=== PATIENT | female | born 1930 | race Caucasian/White ===

== ENCOUNTER 2017-05-05 16:16 | Observation (INO) ==
[2017-05-05] MEDS ORDERED: Ipratropium/Albuterol Neb 3 ML IH ONE (16:28)
[2017-05-05] MEDS ORDERED: methylPREDNISolone 125 MG/2 ML VIAL IVP ONE (16:29)
[2017-05-05] MEDS ORDERED: 0.9 % Sodium Chloride 2,000 ML ONE (16:42)
[2017-05-05] MEDS: 0.9 % Sodium Chloride 1,000 ML IVC SCH ×2 (16:44→17:44)
[2017-05-05 16:48] LABS: Basophils # 0.1 K/mcL (0.0-0.2); Basophils % 0.3 %; Hematocrit 33.7 % (35.3-44.9); Hemoglobin 10.2 g/dL (11.5-15.4); Immature Granulocytes % 2.7 % (0-4); Lymphocytes # 0.5 K/mcL (0.6-4.6); Lymphocytes % 2.7 %; Mean Corpuscular HGB Conc 30.3 g/dL (31.6-35.5); Mean Corpuscular Hemoglobin 27.7 pg (28.0-33.3); Mean Corpuscular Volume 91.6 fL (83.0-100.0); Mean Platelet Volume 10.6 fL (9.4-12.4); Monocytes # 0.2 K/mcL (0.0-1.3); Monocytes % 1.4 %; Neutrophils # 15.4 K/mcL (1.6-8.9); Platelet Count 247 K/mcL (140-400); Red Blood Count 3.68 M/mcL (3.82-4.97); Red Cell Distribution Width 16.7 % (11.5-14.5); Segmented Neutrophils % 92.9 %
[2017-05-05 16:54] LABS: INR 1.2; Prothrombin Time 12.8 Seconds (9.4-12.1)
[2017-05-05 16:57] LABS: Activated Partial Thrombo Time 26.4 Seconds (26.0-36.0)
[2017-05-05] MEDS ORDERED: Levofloxacin 750 MG/150 ML 750 MG/150 ML BAG IVPB ONE (16:58)
--- NOTE | 2017-05-05 17:03 | Emergency Department Note ---
Disposition Clinical Impression: Acute on chronic respiratory failure with hypoxia and hypercapnia Hypotension Qualifiers: Hypotension type: unspecified hypotension type Qualified Code(s): I95.9 - Hypotension, unspecified Disposition: Admitted As Inpatient Condition: Fair Forms: ED Satisfaction Letter, Work/School Release Time of Disposition: 19:27 General Adult HPI - General Chief complaint: ED General Medical Stated complaint: "LOW BP" Time Seen by Provider: 05/05/17 16:26 Source: patient Mode of arrival: wheelchair Limitations: no limitations Nursing Notes Reviewed: Yes Vital Signs Reviewed: Yes - History of Present Illness HPI Narrative: 86-year-old female presented to the emergency department complaining of hypoxia. Patient states her sats were in the low 80s. She is always on 2 L of oxygen at home. She did have a BiPAP machine at home but did not like the way made her feel so she quit using it. Patient was have history of COPD she has had been intubated one specific that this will never happen again she is now a DNR DNI. They said earlier this week patient had a lobe blood pressures they checked her labs and she was down 2 units of blood to be transfused her with 2 units into [place] all of her blood pressure medications. She been doing fine all week. Until they noticed her oxygen saturations were down today. Patient otherwise is having no complaints including no fevers, chills, nausea, vomiting , back pain, neck pain, headaches, blurry vision, chest pain, abdominal pain, changes in bowel movements, pain with urination, pain or tingling going down the arms or legs or any generalized weakness. Pain Scale: 0 - Related Data Home Medications Medication Instructions Recorded Confirmed Aspirin 81 mg PO DAILY 11/13/14 05/05/17 Levalbuterol Neb [Xopenex] 0.63 mg IH TID 11/13/14 05/05/17 Ferrous Sulfate [Iron] 325 mg PO BID 12/12/16 05/05/17 Albuterol Sulfate 2.5 mg IH Q4HR PRN 04/03/17 05/05/17 HYDROcodone/Acet 7.5/325 mg [[place] 1 tab PO Q6HR PRN 04/03/17 05/05/17 7.5-325 mg] Atorvastatin [Lipitor] 40 mg PO HS 05/05/17 05/05/17 Levothyroxine Sodium [Synthroid] 200 mcg PO QAM 05/05/17 05/05/17 predniSONE [PredniSONE] See Taper PO DAILY 05/05/17 05/05/17 Previous Rx's Medication Instructions Recorded Budesonide/Formoterol 160/4.5 2 puff IH BIDRESP #1 inhaler 09/16/15 [Symbicort 160/4.5] Clopidogrel [Plavix] 75 mg PO DAILY #30 tablet 09/16/15 Allergies Allergy/AdvReac Type Severity Reaction Status Date / Time No Known Allergies Allergy Verified 05/05/17 16:38 Review of Systems: 10 point review of systems done and negative unless otherwise stated in history of present illness. All systems ED: reviewed and negative except as stated. Review of Systems: As Per HPI Past Medical History - Past Medical History Attestation: Yes The following information was validated with the patient. Medical history: Reports: arthritis, CHF, COPD, coronary artery disease, CVA, hypertension, thyroid disease, TIA, other Surgical history: Reports: appendectomy, hysterectomy, other Psychiatric history: Reports: no psych history, anxiety [employer] history: Reports: other - Social History Smoking Status: Former smoker Smokeless Tobacco Status: No Alcohol use: Reports: none Drug use: Reports: none Physical Exam - General Limitations: no limitations General appearance: alert, in no apparent distress - Head Head exam: atraumatic, normocephalic, normal inspection - Eye Eye exam: Present: normal appearance, PERRL, EOMI - ENT ENT exam: normal exam, normal oropharynx, mucous membranes moist - Neck Neck exam: Present: normal inspection, full ROM, trachea midline - Chest Chest inspection: Present: normal inspection, symmetric chest wall rise - Respiratory Respiratory exam: Present: normal lung sounds bilaterally, wheezes (Bilaterally. ). Absent: respiratory distress, accessory muscle use - Cardiovascular Cardiovascular exam: Present: regular rate, normal rhythm, normal heart sounds - Abdominal Exam Abdominal exam: Present: soft, Non-Tender. Absent: tenderness, distention, guarding, rebound, rigidity - Extremities Exam Extremities exam: Present: normal inspection, full ROM. Absent: tenderness, pedal edema - Expanded Lower Extremity Exam Neurovascular/Tendon exam: Present: normal capillary refill. Absent: pulse deficit, motor deficit, sensory deficit - Back Exam Back exam: Present: normal inspection, full ROM. Absent: tenderness - Neurological Exam Neurological exam: Present: alert, oriented X3 - Skin Skin exam: Present: warm, dry, intact, normal color Course Course Narrative: 86-year-old female presents to the emergency department complaining of low blood pressure and shortness of breath. Patient was also tachycardic she is on clopidogrel. She has bruising all over her arms. We will get CBC, CMP, urinalysis, chest x-ray, urinalysis as well as coags and EKG. We will give patient 1 L of IV fluids this does not meet the sepsis criteria of 30 mg/kg but due to patient's chronic comorbidities and decreased lung function and heart function we will only give 1000 mL. Disposition is pending results. Vital Signs Temperature 98.0 F 05/05/17 16:30 Pulse Rate 91 05/05/17 16:30 Respiratory Rate 22 05/05/17 16:30 Blood Pressure 74/65 05/05/17 16:30 O2 Sat by Pulse Oximetry 90 05/05/17 16:30 Temperature 98.0 F 05/05/17 16:30 Pulse Rate 80 05/05/17 17:06 Respiratory Rate 22 05/05/17 17:15 Blood Pressure 145/50 05/05/17 17:06 O2 Sat by Pulse Oximetry 100 05/05/17 17:15 Oxygen Delivery Oxygen Delivery Nasal Cannula Medical Decision Making - [facility] Narrative Medical decision making narrative: 86-year-old female presented to the emergency department with hypotension. Patient does take clopidogrel. She had received 2 units of blood a few days ago due to hypotension as well as low hemoglobin. Today her hemoglobin is normal eyes. Although she does have a white count of 16,000. Patient does have cellulitis that we saw on examination of her right groin as well as a healing that ulcer of her right buttocks. This does seem to be healing well these all seem to be yeast in etiology. Patient was hypotensive and tachycardic. She did not have hypoxia as well at 85% while on 4 L which she normally is always on oxygen. Patient did have hyper carboxy. Patient does not tolerate BiPAP through not do it she is DNR DNI. We did give patient vancomycin and Levaquin for her suspected infection when she came in also gave her IV fluids 1 L. Patient tolerated this well. We did do a type and cross in case patient needed blood but we ended up giving the blood. We did get a chest x-ray which had no acute changes. Due to patient not feeling well and being hypoxic we felt that admission was warranted. I spoke with Dr. Barnes who agreed to accept the patient to the hospitalist service. Patient was accepted and admitted in stable condition. Family was notified and they agree with this plan. Chest X-Ray 05/05/17 16:27 IMPRESSION: No acute findings. D/ / Natasha العلي MD / Natasha العلي MD Interpreting Provider: Natasha العلي MD - Medical Records Medical records reviewed: Yes I reviewed the patient's medical records. - Lab Data Lab results reviewed: Yes I reviewed the patient's lab results. Result diagrams: 05/05/17 16:36 05/05/17 16:36 Lab Results 05/05/17 05/05/17 05/05/17 Range/Units 16:36 16:36 16:36 WBC 16.6 H D (4.3-11.1) K/mcL RBC 3.68 L (3.82-4.97) M/mcL Hgb 10.2 L (11.5-15.4) g/dL Hct 33.7 L (35.3-44.9) % MCV 91.6 (83.0-100.0) fL MCH 27.7 L (28.0-33.3) pg MCHC 30.3 L (31.6-35.5) g/dL RDW 16.7 H (11.5-14.5) % Plt Count 247 D (140-400) K/mcL MPV 10.6 (9.4-12.4) fL Immature Gran % 2.7 (0-4) % Seg Neutrophils % 92.9 % Lymphocytes % 2.7 % Monocytes % 1.4 % Eosinophils % 0.0 % Basophils % 0.3 % Neutrophils # 15.4 H (1.6-8.9) K/mcL Lymphocytes # 0.5 L (0.6-4.6) K/mcL Monocytes # 0.2 (0.0-1.3) K/mcL Eosinophils # 0.0 (0.0-0.6) K/mcL Basophils # 0.1 (0.0-0.2) K/mcL PT 12.8 H (9.4-12.1) Seconds INR 1.2 APTT 26.4 (26.0-36.0) Seconds Sample Site ABG pH (7.32-7.45) pH Units ABG pCO2 (35-45) mmHg ABG pO2 (85-104) mmHg ABG HCO3 (21-27) mEq/L ABG Total CO2 (20-26) mEq/L ABG O2 Saturation (95-98) % ABG Base Excess (-2 to 3) mEq/L Riley Test O2 Delivery Device Inspired O2 (1-15=lpm hi58-137=%) Sodium 143 (136-145) mEq/L Potassium 3.4 L (3.5-5.1) mEq/L Chloride 95 L (98-107) mEq/L Carbon Dioxide 41 H* (23-29) mEq/L BUN 33 H (8-23) mg/dL Creatinine 1.28 H (0.60-1.20) mg/dL Est GFR ( Amer) 48 L (> 60) Est GFR (Non-Af Amer) 40 L (> 60) BUN/Creatinine Ratio 26 (6-26) Glucose 149 H (70-105) mg/dL Calculated Osmolality 306 H (280-300) Lactic Acid (0.5-2.2) mmol/L Calcium 8.5 L (8.6-10.3) mg/dL Phosphorus 3.0 (2.7-4.5) mg/dL Magnesium 1.8 (1.6-2.6) mg/dL Total Bilirubin 0.5 (0.3-1.0) mg/dL Direct Bilirubin 0.1 (0.0-0.2) mg/dL Indirect Bilirubin 0.4 (0.0-1.2) mg/dL AST 16 (13-39) Units/L ALT 21 (7-52) Units/L Alkaline Phosphatase 67 (34-104) Units/L Troponin I (< 0.04) ng/mL Serum Total Protein 6.0 L (6.4-8.9) g/dL Albumin 3.8 (3.5-5.7) g/dL Globulin 2.2 L (2.4-3.5) g/dL Albumin/Globulin Ratio 1.7 (1.1-2.2) Lipase 17 (11-82) Units/L Urine Color (Yellow) Urine Clarity (Clear) Urine pH (5.0-8.0) pH Units Ur Specific [place] (1.010-1.025) Urine Protein (Neg-Trace) mg/dL Urine Glucose (UA) (Normal) mg/dL Urine Ketones (Negative) mg/dL Urine Blood (Negative) Urine Nitrite (Negative) Urine Bilirubin (Negative) Urine Urobilinogen (Normal) mg/dL Ur Leukocyte Esterase (Negative) Ur Culture Indicated? (NO) Stool Occult Blood (Negative) Blood Type Antibody Screen Crossmatch 05/05/17 05/05/17 05/05/17 Range/Units 16:36 16:36 16:36 WBC (4.3-11.1) K/mcL RBC (3.82-4.97) M/mcL Hgb (11.5-15.4) g/dL Hct (35.3-44.9) % MCV (83.0-100.0) fL MCH (28.0-33.3) pg MCHC (31.6-35.5) g/dL RDW (11.5-14.5) % Plt Count (140-400) K/mcL MPV (9.4-12.4) fL Immature Gran % (0-4) % Seg Neutrophils % % Lymphocytes % % Monocytes % % Eosinophils % % Basophils % % Neutrophils # (1.6-8.9) K/mcL Lymphocytes # (0.6-4.6) K/mcL Monocytes # (0.0-1.3) K/mcL Eosinophils # (0.0-0.6) K/mcL Basophils # (0.0-0.2) K/mcL PT (9.4-12.1) Seconds INR APTT (26.0-36.0) Seconds Sample Site ABG pH (7.32-7.45) pH Units ABG pCO2 (35-45) mmHg ABG pO2 (85-104) mmHg ABG HCO3 (21-27) mEq/L ABG Total CO2 (20-26) mEq/L ABG O2 Saturation (95-98) % ABG Base Excess (-2 to 3) mEq/L Riley Test O2 Delivery Device Inspired O2 (1-15=lpm qw60-104=%) Sodium (136-145) mEq/L Potassium (3.5-5.1) mEq/L Chloride (98-107) mEq/L Carbon Dioxide (23-29) mEq/L BUN (8-23) mg/dL Creatinine (0.60-1.20) mg/dL Est GFR ( Amer) (> 60) Est GFR (Non-Af Amer) (> 60) BUN/Creatinine Ratio (6-26) Glucose (70-105) mg/dL Calculated Osmolality (280-300) Lactic Acid 1.1 (0.5-2.2) mmol/L Calcium (8.6-10.3) mg/dL Phosphorus (2.7-4.5) mg/dL Magnesium (1.6-2.6) mg/dL Total Bilirubin (0.3-1.0) mg/dL Direct Bilirubin (0.0-0.2) mg/dL Indirect Bilirubin (0.0-1.2) mg/dL AST (13-39) Units/L ALT (7-52) Units/L Alkaline Phosphatase (34-104) Units/L Troponin I < 0.03 (< 0.04) ng/mL Serum Total Protein (6.4-8.9) g/dL Albumin (3.5-5.7) g/dL Globulin (2.4-3.5) g/dL Albumin/Globulin Ratio (1.1-2.2) Lipase (11-82) Units/L Urine Color (Yellow) Urine Clarity (Clear) Urine pH (5.0-8.0) pH Units Ur Specific [place] (1.010-1.025) Urine Protein (Neg-Trace) mg/dL Urine Glucose (UA) (Normal) mg/dL Urine Ketones (Negative) mg/dL Urine Blood (Negative) Urine Nitrite (Negative) Urine Bilirubin (Negative) Urine Urobilinogen (Normal) mg/dL Ur Leukocyte Esterase (Negative) Ur Culture Indicated? (NO) Stool Occult Blood (Negative) Blood Type A POSITIVE Antibody Screen NEGATIVE Crossmatch See Detail 05/05/17 05/05/17 05/05/17 Range/Units 17:11 17:30 17:56 WBC (4.3-11.1) K/mcL RBC (3.82-4.97) M/mcL Hgb (11.5-15.4) g/dL Hct (35.3-44.9) % MCV (83.0-100.0) fL MCH (28.0-33.3) pg MCHC (31.6-35.5) g/dL RDW (11.5-14.5) % Plt Count (140-400) K/mcL MPV (9.4-12.4) fL Immature Gran % (0-4) % Seg Neutrophils % % Lymphocytes % % Monocytes % % Eosinophils % % Basophils % % Neutrophils # (1.6-8.9) K/mcL Lymphocytes # (0.6-4.6) K/mcL Monocytes # (0.0-1.3) K/mcL Eosinophils # (0.0-0.6) K/mcL Basophils # (0.0-0.2) K/mcL PT (9.4-12.1) Seconds INR APTT (26.0-36.0) Seconds Sample Site L Radial ABG pH 7.39 (7.32-7.45) pH Units ABG pCO2 69 H (35-45) mmHg ABG pO2 198 H (85-104) mmHg ABG HCO3 42 H (21-27) mEq/L ABG Total CO2 44 H (20-26) mEq/L ABG O2 Saturation 100 H (95-98) % ABG Base Excess 15 H (-2 to 3) mEq/L Riley Test N/A O2 Delivery Device Cannula Inspired O2 4.0 (1-15=lpm uy68-490=%) Sodium (136-145) mEq/L Potassium (3.5-5.1) mEq/L Chloride (98-107) mEq/L Carbon Dioxide (23-29) mEq/L BUN (8-23) mg/dL Creatinine (0.60-1.20) mg/dL Est GFR ( Amer) (> 60) Est GFR (Non-Af Amer) (> 60) BUN/Creatinine Ratio (6-26) Glucose (70-105) mg/dL Calculated Osmolality (280-300) Lactic Acid (0.5-2.2) mmol/L Calcium (8.6-10.3) mg/dL Phosphorus (2.7-4.5) mg/dL Magnesium (1.6-2.6) mg/dL Total Bilirubin (0.3-1.0) mg/dL Direct Bilirubin (0.0-0.2) mg/dL Indirect Bilirubin (0.0-1.2) mg/dL AST (13-39) Units/L ALT (7-52) Units/L Alkaline Phosphatase (34-104) Units/L Troponin I (< 0.04) ng/mL Serum Total Protein (6.4-8.9) g/dL Albumin (3.5-5.7) g/dL Globulin (2.4-3.5) g/dL Albumin/Globulin Ratio (1.1-2.2) Lipase (11-82) Units/L Urine Color Yellow (Yellow) Urine Clarity Clear (Clear) Urine pH 6.0 (5.0-8.0) pH Units Ur Specific [place] 1.019 (1.010-1.025) Urine Protein Negative (Neg-Trace) mg/dL Urine Glucose (UA) Normal (Normal) mg/dL Urine Ketones Negative (Negative) mg/dL Urine Blood Negative (Negative) Urine Nitrite Negative (Negative) Urine Bilirubin Negative (Negative) Urine Urobilinogen Normal (Normal) mg/dL Ur Leukocyte Esterase Negative (Negative) Ur Culture Indicated? NO (NO) Stool Occult Blood Negative (Negative) Blood Type Antibody Screen Crossmatch - Radiology Data Radiology results reviewed: Yes I reviewed the patient's radiology results. - EKG Data EKG #1 EKG attestation: Yes I reviewed and interpreted this EKG. EKG results narrative: EKG done at 1653 review myself and attending shows sinus rhythm at a rate of 74 , [place] 147, QRS 83, QTc 413 there is no acute ST changes no acute T-wave changes no other signs of ischemia. There is no signs of hypertrophy or heart strain no signs of heart block, no signs of WPW/Brugada syndrome. There was no old EKG to compare with.
[2017-05-05 17:15] LABS: ABG Base Excess 15 mEq/L (-2 to 3); ABG HCO3 42 mEq/L (21-27); ABG Oxygen Saturation 100 % (95-98); ABG PCO2 69 mmHg (35-45); ABG PH 7.39 pH Units (7.32-7.45); ABG PO2 198 mmHg (85-104); ABG TCO2 44 mEq/L (20-26)
[2017-05-05 17:15] LABS: Albumin 3.8 g/dL (3.5-5.7); Albumin/Globulin Ratio 1.7 (1.1-2.2); Bilirubin,Direct 0.1 mg/dL (0.0-0.2); Bilirubin,Indirect 0.4 mg/dL (0.0-1.2); Bilirubin,Total 0.5 mg/dL (0.3-1.0); Calcium 8.5 mg/dL (8.6-10.3); Globulin 2.2 g/dL (2.4-3.5); Magnesium 1.8 mg/dL (1.6-2.6); Potassium 3.4 mEq/L (3.5-5.1)
[2017-05-05] MEDS ORDERED: Vancomycin 1,000 MG in D5% in Water 250 ML IVPB ONE (17:30)
[2017-05-05 18:21] LABS: Bilirubin,Urine Negative (Negative); Blood,Urine Negative (Negative); Clarity,Urine Clear (Clear); Color,Urine Yellow (Yellow); Glucose,Urine (UA) Normal (Normal); Ketones,Urine Negative (Negative); Leukocyte Esterase,Urine Negative (Negative); Nitrite,Urine Negative (Negative); Protein,Urine Negative (Neg-Trace); Specific Gravity,Urine 1.019 (1.010-1.025); Urobilinogen,Urine Normal (Normal)
[2017-05-05] MEDS ORDERED: *HR* HYDROcodone/Acet 7.5/325 mg TABLET PO ONE (18:29)
[2017-05-05] MEDS: Nystatin POWDER 30 GM BOTTLE TP SCH ×2 (18:47→23:24)
[2017-05-05] MEDS ORDERED: Naloxone 0.4 MG/ML INJ IVP PRN (19:41)
[2017-05-05] MEDS ORDERED: Acetaminophen 325 MG TABLET PO PRN (19:41)
--- NOTE | 2017-05-05 19:52 | Internal Med History&Physical ---
<Barbi Moore - Last Filed: 05/05/17 20:45> Date of Encounter: 05/05/17 Time of Encounter: 19:51 Assessment and Plan (1) Acute exacerbation of chronic obstructive airways disease Current visit: Yes Status: Acute 1 patient was experiencing increasing shortness of breath and hypoxia with sats in the 80s. She was recently admitted 5 days ago to [facility] and was discharged home on steroid taper as well as Levaquin 5 days she completed her final dose today. We will continue with oxygen titrated to maintain SPO2 greater than 90% 2 we will continue with bronchodilators 3 40 mg of Solu-Medrol IV every 8 hours 4 we will obtain respiratory panel (2) Cellulitis Current visit: Yes Status: Acute 1 Right groin red and indurated, we will cover continue with Vancomycin for now per renal dosing dt MAHSA, as well as nystatin there appears to fungal aspect. She does have an elevated white count however she has been on steroids. we will continue to trend 2 keep area clean and dry - patient has been incontinent of urine- porter has been placed Qualifiers: Site of cellulitis: unspecified site Qualified Code(s): L03.90 - Cellulitis , unspecified (3) MAHSA (acute kidney injury) Current visit: Yes Status: Acute Creatinine was 1.28 today which is up from previous 1.03, we will hold lasix and hypertensive medications for now patient was given IV fluids in the ER Continue to monitor creatinine Monitor intake and output and daily weight Avoid nephrotoxins (4) Anemia Current visit: No Status: Chronic 1 patient was recently admitted to [facility] for anemia at that time he was 7.9 she was given 2 units of blood presently she is 10.2sizes symptoms of active bleeding at this time however she was hypotensive 1 during ER visit today she was given IV fluids and blood pressure improved. According to patient she did have a EGD and colonoscopy approximately [address] Nolasco, no active bleeding noted she did have some polyps 2 we will continue to monitor CBC and transfuse as needed Qualifiers: Anemia type: unspecified type Qualified Code(s): D64.9 - Anemia, unspecified (5) Diastolic CHF Current visit: No Status: Chronic 1 patient has a history of CHF echo dated 09/10/2015 shows EF of 6570% normal LV chamber size wall thickness and function. Moderate left ventricular diastolic dysfunction. Normal right ventricular structure and function. Unable to estimate R VSP due to lack of TR jet. No obvious significant valvular dysfunctions. We will hold lasix for now dt MAHSA and hypotension Monitor intake output daily weights Low-sodium diet Qualifiers: Congestive heart failure chronicity: chronic Qualified Code(s): I50.32 - Chronic diastolic (congestive) heart failure (6) Hypertension, essential Current visit: No Status: Chronic Presently she is stable she did have some hyportension and her antihypertensive medications have been held and we will continue to hold medications for now We will have hydralazine when necessary in case systolic blood pressure is greater than 180 (7) Hypothyroidism Current visit: No Status: Chronic Continue with Synthroid Qualifiers: Hypothyroidism type: acquired Qualified Code(s): E03.9 - Hypothyroidism, unspecified (8) Metabolic alkalosis Current visit: Yes Status: Acute Presently patient's bicarb is 42 which appears to be chronic - compensating for resp acidosis - patient has hx of COPD- Holding lasix for now dt hypotension (9) DVT prophylaxis Current visit: No Status: [facility] - H&P: HPI Chief complaint: SOB Admitted From: Emergency Dept Plans for Post Hospital Care: Home History of present illness: Ms. Castelan is a 86 year old female past medical history of CHF COPD oxygen dependent CAD CVA hypertension thyroid disease TIA anemia. Patient was recently admitted to [facility] on 04/28/2017- At that time she was experiencing COPD exacerbation hypotension and anemia. During admission she was given 2 unit of blood, anti hypertensive medication were stopped and she was discharged04/30/2017 on a steroid taper and Levaquin. Patient states she was doing well until this morning when she began to experience shortness of breath she checked her oxygen saturation and found that she was in the low 80s. Despite the use of oxygen. She denies any fevers chills nausea vomiting chest pain or abdominal pain. She denies any urinary symptoms. She was brought to the ER for evaluation. Upon arrival patient's oxygen saturation was 89%on 4 L nasal cannula as well as her systolic blood pressure was 74 she was given bronchodilators as well as Solu-Medrol and her respiratory status improved. She was given IV fluids, blood pressure did improve. Lab work did reveal elevated white count and MAHSA. Chest x-ray clear. Patient does have a rash in her right groin which appears to be yeast, blood cultures were drawn in the ER the patient was given vancomycin as well as Levaquin. He is hemodynamically stable at this time, I did discuss CODE STATUS with patient she requests to be a DNR CCA DNI. She has been admitted for further workup and evaluation. I did review his case with Dr Glover Past Med Surg Social Fam HX - Past Medical History Medical history: arthritis, CHF, COPD, coronary artery disease, CVA, hypertension, thyroid disease, TIA, other Psychiatric history: no psych history, anxiety - Past Surgical History Surgical History: appendectomy, hysterectomy, other - Social History Smoking Status: Former smoker Smokeless Tobacco Status: No Alcohol use: none Drug use: none - Family History Mother Living Status: Hx Family Cancer: Yes Father Living Status: Hx Family Cardiac Disorders: Yes (htn,cad) Hx Family Endocrine Disorder: Yes (dm2) Daughter Adopted: No Family Member Ethnicity: Non- Living Status: Still Living Internal Medicine - H&P: Meds Aspirin 81 mg PO DAILY 11/13/14 [History] Levalbuterol Neb [Xopenex] 0.63 mg IH TID 11/13/14 [History] Budesonide/Formoterol 160/4.5 [Symbicort 160/4.5] 2 puff IH BIDRESP #1 inhaler 09/16/15 [Rx] Clopidogrel [Plavix] 75 mg PO DAILY #30 tablet 09/16/15 [Rx] Ferrous Sulfate [Iron] 325 mg PO BID 12/12/16 [History] Albuterol Sulfate 2.5 mg IH Q4HR PRN 04/03/17 [History] HYDROcodone/Acet 7.5/325 mg [[place] 7.5-325 mg] 1 tab PO Q6HR PRN 04/03/17 [ History] Atorvastatin [Lipitor] 40 mg PO HS 05/05/17 [History] Levothyroxine Sodium [Synthroid] 200 mcg PO QAM 05/05/17 [History] predniSONE [PredniSONE] See Taper PO DAILY 05/05/17 [History] 3 Allergy/AdvReac Type Severity Reaction Status Date / Time No Known Allergies Allergy Verified 05/05/17 16:38 All Systems PM: A 10-system review of systems was performed and is negative for pertinent findings except as documented above in the HPI. - Constitutional Constitutional: no chills, no fever(s), no night sweats - EENT Eyes: no change in vision, no discharge, no pain, no photophobia Ears: no ear discharge, no ear pain, no tinnitus Nose, mouth and throat: no dysphagia, no nasal discharge, no neck pain, no sore throat - Cardiovascular Cardiovascular ROS IM: no chest pain, no diaphoresis, no dyspnea, no lightheadedness, no palpitations, no syncope - Respiratory Respiratory: dyspnea, no cough, no wheezing, no excessive phlegm production - Gastrointestinal Gastrointestinal: no abdominal pain, no diarrhea, no hematemesis, no hematochezia, no melena, no nausea, no vomiting - Genitourinary Genitourinary: no change in urinary stream, no dysuria, no flank pain, no hematuria - Musculoskeletal Musculoskeletal ROS IM: no numbness, no tingling - Integumentary Integumentary IM: erythema, rash - Neurological Neurological ROS: no confusion, no convulsions, no focal weakness, no numbness, no tingling, no tremor(s) - Hematologic/Lymphatic Hematologic/Lymphatic: no easy bruising - Constitutional Vitals: Temp Pulse Resp BP Pulse Ox 98.0 F 75 20 135/48 100 05/05/17 16:30 05/05/17 19:36 05/05/17 19:36 05/05/17 19:36 05/05/17 19:36 General appearance: Present: A&O X 3, answers questions appropriately - Head Head exam: Present: atraumatic, normocephalic - Eye Eye exam: Present: PERRL, conjuntiva pink, sclera anicteric Pupils: Present: PERRL - Neck Neck exam general surgery: Present: supple, trachea midline. Absent: lymphadenopathy - Respiratory Respiratory exam: Present: wheezes. Absent: accessory muscle use, rales, rhonchi - Cardiovascular Cardiovascular exam: Present: RRR, +S1, +S2. Absent: diastolic murmur, gallop, rubs, systolic murmur - GI/Abdominal GI/Abdominal exam: Present: normal bowel sounds, soft, no peritoneal signs. Absent: distended, tenderness - Extremities Exam Extremities exam: Present: warm, radial pulses palpable and symmetrical. Absent : calf tenderness, cyanotic, pedal edema - Neurological Exam Neurological exam: Present: CN II-XII intact, oriented X3, no focal deficits. Absent: pronater drift, facial droop, speech deficit - Skin Skin exam: Present: dry, intact Internal Med - H&P Results - Labs CBC & Chem 7: 05/05/17 16:36 05/05/17 16:36 Labs: Short CBC 05/05/17 Range/Units 16:36 WBC 16.6 H D (4.3-11.1) K/mcL Hgb 10.2 L (11.5-15.4) g/dL Hct 33.7 L (35.3-44.9) % Plt Count 247 D (140-400) K/mcL Neutrophils # 15.4 H (1.6-8.9) K/mcL BMP 05/05/17 16:36 Sodium 143 Potassium 3.4 L Chloride 95 L Carbon Dioxide 41 H* BUN 33 H Creatinine 1.28 H Glucose 149 H Calcium 8.5 L Cardiac Enzymes 05/05/17 Range/Units 16:36 Troponin I < 0.03 (< 0.04) ng/mL Liver Function 05/05/17 Range/Units 16:36 Total Bilirubin 0.5 (0.3-1.0) mg/dL Direct Bilirubin 0.1 (0.0-0.2) mg/dL AST 16 (13-39) Units/L ALT 21 (7-52) Units/L Alkaline Phosphatase 67 (34-104) Units/L Albumin 3.8 (3.5-5.7) g/dL Urine 05/05/17 Range/Units 17:56 Urine Color Yellow (Yellow) Urine Clarity Clear (Clear) Urine pH 6.0 (5.0-8.0) pH Units Ur Specific [place] 1.019 (1.010-1.025) Urine Protein Negative (Neg-Trace) mg/dL Urine Glucose (UA) Normal (Normal) mg/dL - ABG Interpretation ABG results: 05/05/17 17:11 ABG pH 7.39 ABG pCO2 69 H ABG pO2 198 H ABG HCO3 42 H ABG Total CO2 44 H ABG O2 Saturation 100 H ABG Base Excess 15 H - Impressions ITS Impressions Chest X-Ray 05/05/17 16:27 IMPRESSION: No acute findings. D/ / Natasha العلي MD / Natasha العلي MD Interpreting Provider: Natasha العلي MD - Diagnostic Studies Other Images Additional comments: Chest X-Ray 05/05/17 16:27 IMPRESSION: No acute findings. D/ / Natasha العلي MD / Natasha العلي MD Interpreting Provider: Natasha العلي MD <Leni Rios - Last Filed: 05/05/17 21:32> Date of Encounter: 05/05/17 Time of Encounter: 20:00 Internal Medicine - H&P: HPI History of present illness: Ms. Castelan is a 86 year old female All Systems PM: A 10-system review of systems was performed and is negative for pertinent findings except as documented above in the HPI. - Constitutional Vitals: Temp Pulse Resp BP Pulse Ox 98.0 F 72 16 139/54 98 05/05/17 16:30 05/05/17 20:59 05/05/17 20:59 05/05/17 20:59 05/05/17 20:59 Internal Med - H&P Results - Labs CBC & Chem 7: 05/05/17 16:36 05/05/17 16:36 - Attending Attestation I examined this patient and my medical decision-making was reviewed with the Nurse Practioner, Barbi Moore. I agree with the documented findings, disposition and treatment plan as described except to the extent set forth below. 86-year-old female patient presented to ER with complaints of dizziness, hypotension and Shortness of breath. Recently discharged from [facility] following hospitalization for COPD, anemia, hypotension. A discharge from that hospitalization her antihypertensives were held. She did receive 2 units of packed red blood cells. Her blood counts have remained stable since then. She developed an episode of epistaxis after that which was managed in the ER prior to this visit. On arrival to the ER, she was found to be hypotensive. She received IV fluids with improvement in blood pressure. She now feels much better. On examination, patient has bilateral and expiratory wheezes. There is erythema and redness with induration in the right groin region concerning for cellulitis superimposed on fungal dermatitis. Labs show leukocytosis which could be related to prednisone use. Cellulitis: Possible cellulitis superimposed on fungal dermatitis involving the right groin. We will treat with topical antifungal agents along with antibiotics. Acute COPD exacerbation: We will place patient in hospital for observation for COPD exacerbation. Continue bronchodilators. Steroids. No further indication for antibiotics at this time. Anemia: Chronic. Monitor blood counts closely. Mild acute kidney injury: Patient received IV fluids in the ER. Will follow renal function closely. We will does antibiotics renally. Respiratory acidosis with compensatory metabolic alkalosis: PH normal. Patient does have respiratory acidosis with high PCO2 and compensated metabolic alkalosis. DVT prophylaxis with SQ heparin
[2017-05-05] MEDS ORDERED: Vancomycin 1,000 MG in D5% in Water 250 ML IVPB SCH (21:00)
[2017-05-05] MEDS: Budesonide/Formoterol 160/4.5 MDI IH SCH (22:41)
[2017-05-06] MEDS ORDERED: Albuterol 2.5 MG/3 ML NEBULIZER IH PRN
[2017-05-06] MEDS: MethylPREDNISolone 40 MG/ML VIAL IVP SCH ×2 (01:24→07:56)
[2017-05-06] MEDS: *HR* HYDROcodone/Acet 7.5/325 mg TABLET PO PRN ×3 (01:47→13:11)
[2017-05-06] MEDS: Levalbuterol Neb 0.63 MG/3 ML IH SCH ×2 (02:54→10:57)
[2017-05-06 05:06] LABS: Basophils % 0.3 %; Hematocrit 27.4 % (35.3-44.9); Lymphocytes # 0.2 K/mcL (0.6-4.6); Lymphocytes % 3.2 %; Mean Corpuscular HGB Conc 30.7 g/dL (31.6-35.5); Mean Corpuscular Volume 91.3 fL (83.0-100.0); Mean Platelet Volume 10.5 fL (9.4-12.4); Monocytes # 0.1 K/mcL (0.0-1.3); Monocytes % 1.3 %; Neutrophils # 6.8 K/mcL (1.6-8.9); Nucleated Red Blood Cells 0.4 /100 WBC (0); Platelet Count 185 K/mcL (140-400); Red Cell Distribution Width 16.2 % (11.5-14.5); Segmented Neutrophils % 91.2 %
[2017-05-06 05:15] LABS: Hemoglobin 8.4 g/dL (11.5-15.4)
[2017-05-06 05:32] LABS: BUN/Creatinine Ratio 23 (6-26); Blood Urea Nitrogen 23 mg/dL (8-23); Calcium 7.6 mg/dL (8.6-10.3); Carbon Dioxide 37 mEq/L (23-29); Chloride 100 mEq/L (98-107); Glucose 129 mg/dL (70-105); Osmolality,Calculated 303 (280-300); Potassium 3.4 mEq/L (3.5-5.1); Sodium 144 mEq/L (136-145); eGFR For African Americans > 60 (> 60); eGFR For Non-African Americans 54 (> 60)
[2017-05-06] MEDS ORDERED: *HR* Heparin 5,000 UNIT/ML VIAL SQ SCH (06:00)
--- NOTE | 2017-05-06 08:21 | Electrocardiograph Report ---
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
[2017-05-06] MEDS ORDERED: Aspirin 81 MG TAB.CHEW PO SCH (09:00)
--- NOTE | 2017-05-06 10:43 | Discharge Summary ---
<Damion Atwood - Last Filed: 05/06/17 10:43> Date of Encounter: 05/06/17 Time of Encounter: 10:37 - Discharge Diagnosis (1) Hypotensive episode Priority: Primary Status: Acute (2) Acute exacerbation of chronic obstructive pulmonary disease (COPD) Priority: Secondary Status: Acute (3) MAHSA (acute kidney injury) Priority: Secondary Status: Acute (4) Anemia Priority: Secondary Status: Chronic Qualifiers: Anemia type: unspecified type Qualified Code(s): D64.9 - Anemia, unspecified (5) Cellulitis Priority: Secondary Status: Acute Qualifiers: Site of cellulitis: unspecified site Qualified Code(s): L03.90 - Cellulitis , unspecified (6) Diastolic CHF Priority: Secondary Status: Chronic Qualifiers: Congestive heart failure chronicity: chronic Qualified Code(s): I50.32 - Chronic diastolic (congestive) heart failure (7) DVT prophylaxis Priority: Secondary Status: Acute (8) Hypertension, essential Priority: Secondary Status: Chronic (9) Hypothyroidism Priority: Secondary Status: Chronic Qualifiers: Hypothyroidism type: acquired Qualified Code(s): E03.9 - Hypothyroidism, unspecified (10) Metabolic alkalosis Priority: Secondary Status: Acute - Discharge Medications Home Medications: Aspirin 81 mg PO DAILY 11/13/14 [History] Levalbuterol Neb [Xopenex] 0.63 mg IH TID 11/13/14 [History] Budesonide/Formoterol 160/4.5 [Symbicort 160/4.5] 2 puff IH BIDRESP #1 inhaler 09/16/15 [Rx] Clopidogrel [Plavix] 75 mg PO DAILY #30 tablet 09/16/15 [Rx] Ferrous Sulfate [Iron] 325 mg PO BID 12/12/16 [History] Albuterol Sulfate 2.5 mg IH Q4HR PRN 04/03/17 [History] HYDROcodone/Acet 7.5/325 mg [[place] 7.5-325 mg] 1 tab PO Q6HR PRN 04/03/17 [ History] Atorvastatin [Lipitor] 40 mg PO HS 05/05/17 [History] Levothyroxine Sodium [Synthroid] 200 mcg PO QAM 05/05/17 [History] predniSONE [PredniSONE] See Taper PO DAILY 05/05/17 [History] Doxycycline 100 mg PO BID #20 capsule 05/06/17 [Rx] Allergies/Adverse Reactions: 3 Allergy/AdvReac Type Severity Reaction Status Date / Time No Known Allergies Allergy Verified 05/05/17 16:38 Date of admission: 05/05/17 19:58 Primary care physician: Sheldon Desai CNP Consults: 05/05/17 23:39 Consult to Public Health Outreach Worker [CONS] Routine Reason for SW Consult: possible need for home health - Patient Status Disposition: Home, Self-Care Condition: Fair Functional capacity at discharge: independent ambulation Overall status at discharge: patient is back to baseline - Discharge Instructions Follow Up With: Sheldon Desai CNP [Primary Care Provider] - 05/12/17 2:00 pm - Diet and Activity Activity: increase activity as tolerated Diet: low salt diet Hospital course: Ms. Castelan is a 86 year old female with PMHx of CHF, COPD, oxygen dependent, CAD , CVA, hypertension, thyroid disease, TIA, and anemia presented to [facility] after her daughter took her blood pressure yesterday and her systolic BP was ~ 80s without symptoms. Patient was recently discharged from [facility] for COPD exacerbation on 04/28/17 with levauqin and steroid taper. Patient on presentation to ED SpO2 was 89% and patient was started on breathing treatments. CXR showed no acute findings. EKG showed sinus rhythm. On her first morning, she was back to baseline, asymptomatic, and eating breakfast. Her goal SpO2 is 88-92%. Patient to have follow up with PCP. Patient to have steroids tapered. Time spent discussing smoking cessation with patient: more than 10 minutes - Time Spent with Patient Total time spent providing and/or coordinating discharge services: Greater than 30 minutes - Constitutional Vitals: Temp Pulse Resp BP Pulse Ox 98.1 F 76 16 166/49 94 05/06/17 06:47 05/06/17 06:47 05/06/17 06:47 05/06/17 06:47 05/06/17 06:47 General appearance: Present: A&O X 3, answers questions appropriately - Head Head exam: Present: atraumatic, normocephalic - ENT ENT exam: Present: mucous membranes moist, normal exam - Respiratory Respiratory exam: Present: CTAB. Absent: accessory muscle use, rales, rhonchi, wheezes - Cardiovascular Cardiovascular exam: Present: RRR, +S1, +S2. Absent: diastolic murmur, gallop, rubs, systolic murmur - Extremities Exam Extremities exam: Present: warm, radial pulses palpable and symmetrical. Absent : calf tenderness, cyanotic, pedal edema - Psychiatric Psychiatric exam: Present: normal affect, normal mood - VTE Documentation of Mechanical Device: Graduated compression elastic hosiery <Yayo Ordoñez - Last Filed: 05/06/17 15:01> Date of Encounter: 05/06/17 - Discharge Diagnosis (1) Hypotension Priority: Primary Status: Acute Qualifiers: Hypotension type: other hypotension type Qualified Code(s): I95.89 - Other hypotension (2) Acute on chronic respiratory failure with hypoxia and hypercapnia Priority: Secondary Status: Chronic (3) CAD (coronary artery disease) Priority: Secondary Status: Chronic Qualifiers: Coronary Disease-Associated Artery/Lesion type: lummi artery [place] vs. transplanted heart: lummi heart Associated angina: without angina Qualified Code(s): I25.10 - Atherosclerotic heart disease of lummi coronary artery without angina pectoris (4) Diastolic CHF Status: Chronic Qualifiers: Congestive heart failure chronicity: chronic Qualified Code(s): I50.32 - Chronic diastolic (congestive) heart failure (5) Hypothyroidism Status: Chronic Qualifiers: Hypothyroidism type: acquired Qualified Code(s): E03.9 - Hypothyroidism, unspecified (6) Hypertension, essential Status: Chronic Date of admission: 05/05/17 19:58 Primary care physician: Sheldon Desai CNP Consults: 05/05/17 23:39 Consult to Public Health Outreach Worker [CONS] Routine Reason for SW Consult: possible need for home health Hospital course: Ms. Castelan is a 86 year old female - Time Spent with Patient Total time spent providing and/or coordinating discharge services: - Constitutional Vitals: Temp Pulse Resp BP Pulse Ox 98.2 F 80 16 131/48 97 05/06/17 11:42 05/06/17 11:42 05/06/17 11:42 05/06/17 11:42 05/06/17 11:42 - Attending Attestation I examined this patient and my medical decision-making was reviewed with the Resident Physician on 05/06/17. I agree with the documented findings, disposition and treatment plan as described except to the extent set forth below. Ms Castelan has been in observation for "hypotension" and shortness of breath. Her BP has been stable during this admit and her breathing is at baseline. She feels ready for discharge home. Exam alert. Comfortable Mucus membranes dry Heart distant Lungs clear at this time Plan D/C home Resume meds as recently ordered.
[2017-05-06] MEDS: Budesonide/Formoterol 160/4.5 MDI IH SCH (10:57)
[2017-05-06 11:45] VITALS: BP 131/48
[2017-05-06] MEDS ORDERED: Aminoglycoside Consult 1 EACH MC ONE (13:46)
== END 2017-05-06 13:47 | disposition home or self-care (01) ==
LOC: EMEROO 16:16 → 2NENU 16:16
PROVIDERS: ADMIT Internal Medicine; ATTEND Internal Medicine

== ENCOUNTER 2017-08-25 16:28 | Inpatient (IN) ==
[2017-08-25] MEDS ORDERED: Acetaminophen 325 MG TABLET PO PRN (21:19)
[2017-08-25] MEDS ORDERED: Naloxone 0.4 MG/ML INJ IVP PRN (21:19)
[2017-08-25] MEDS ORDERED: Ipratropium/Albuterol Neb 3 ML IH PRN (21:23)
[2017-08-25] MEDS ORDERED: Levalbuterol Neb 1.25 MG/3 ML IH PRN (21:26)
[2017-08-25] MEDS: Budesonide/Formoterol 160/4.5 MDI IH SCH (21:51)
[2017-08-25] MEDS: Levalbuterol Neb 1.25 MG/3 ML IH SCH (21:51)
--- NOTE | 2017-08-25 23:01 | Internal Med History&Physical ---
Date of Encounter: 08/25/17 Time of Encounter: 20:00 Internal Medicine - H&P: HPI Chief complaint: Shortness of breath Admitted From: Home Plans for Post Hospital Care: Home History of present illness: Ms. Castelan is a 86 year old female presented to [place] emergency room for increased shortness of breath. Past medical history is significant for COPD and hypertension. Patient said she has increased shortness of breath since yesterday. With productive cough with whitish sputum. Patient denies a fever. She denies chest pain, nausea, or vomiting. Patient denies abdominal pain. Her bowel movement is good. In emergency room, she was found bilateral wheezing. Chest x -ray shows no acute changes. Patient was treated with steroid and bronchodilator. Her ABG shows CO2 retention. She was placed on BiPAP and transferred to our hospital for further management. Patient said she feels better after treatment. I have discussed the CODE STATUS with patient. Patient clearly told me she does not want CPR or intubation. DNR DNI placed per patient's wishes. Past Med Surg Social Fam HX - Past Medical History Medical history: arthritis, CHF, COPD, coronary artery disease, CVA, hyperlipidemia, hypertension Psychiatric history: no psych history - Past Surgical History Surgical History: appendectomy, hysterectomy - Social History Smoking Status: Former smoker Smokeless Tobacco Status: No Alcohol use: none Drug use: none - Family History Mother Living Status: Hx Family Cancer: Yes Father Living Status: Hx Family Cardiac Disorders: Yes (htn,cad) Hx Family Endocrine Disorder: Yes (dm2) Daughter Adopted: No Family Member Ethnicity: Non- Living Status: Still Living Internal Medicine - H&P: Meds Aspirin 81 mg PO DAILY 11/13/14 [History] Levalbuterol Neb [Xopenex] 0.63 mg IH TID 11/13/14 [History] Budesonide/Formoterol 160/4.5 [Symbicort 160/4.5] 2 puff IH BIDRESP #1 inhaler 09/16/15 [Rx] Clopidogrel [Plavix] 75 mg PO DAILY #30 tablet 09/16/15 [Rx] Ferrous Sulfate [Iron] 325 mg PO BID 12/12/16 [History] Albuterol Sulfate 2.5 mg IH Q4HR PRN 04/03/17 [History] HYDROcodone/Acet 7.5/325 mg [[place] 7.5-325 mg] 1 tab PO Q6HR PRN 04/03/17 [ History] Atorvastatin [Lipitor] 40 mg PO HS 05/05/17 [History] Levothyroxine Sodium [Synthroid] 200 mcg PO QAM 05/05/17 [History] Ipratropium Neb [Atrovent Neb] 0.5 mg IH Q4HR #20 vial.neb 08/02/17 [Rx] Enalapril Maleate [Vasotec] 5 mg PO DAILY 08/24/17 [History] Furosemide [Lasix] 40 mg PO DAILY 08/24/17 [History] Furosemide [Lasix] 40 mg PO DAILY #4 tablet 08/24/17 [Rx] Potassium Chloride [Klor-Con Sprinkle] 20 meq PO DAILY 08/24/17 [History] Spironolactone [Aldactone] 25 mg PO DAILY 08/24/17 [History] Spironolactone [Aldactone] 25 mg PO DAILY 08/24/17 [History] amLODIPine [Norvasc] 2.5 mg PO DAILY 08/24/17 [History] 3 Allergy/AdvReac Type Severity Reaction Status Date / Time No Known Allergies Allergy Verified 08/24/17 11:47 All Systems PM: A 10-system review of systems was performed and is negative for pertinent findings except as documented above in the HPI. - Constitutional Vitals: Temp Pulse Resp BP Pulse Ox 97.9 F 96 16 143/55 100 08/25/17 20:00 08/25/17 20:00 08/25/17 21:51 08/25/17 20:00 08/25/17 21:51 General appearance: Present: A&O X 3, no acute distress, answers questions appropriately - Head Head exam: Present: atraumatic, normocephalic - Eye Eye exam: Present: PERRL, conjuntiva pink, sclera anicteric Pupils: Present: PERRL - Neck Neck exam general surgery: Present: supple, trachea midline. Absent: lymphadenopathy - Respiratory Respiratory exam: Present: CTAB, wheezes (Bilateral scattered wheezes on lung base). Absent: accessory muscle use, rales, rhonchi - Cardiovascular Cardiovascular exam: Present: RRR, +S1, +S2. Absent: diastolic murmur, gallop, rubs, systolic murmur - GI/Abdominal GI/Abdominal exam: Present: normal bowel sounds, soft, no peritoneal signs. Absent: distended, tenderness - Extremities Exam Extremities exam: Present: pedal edema (Bilateral leg edema, right > left), warm , radial pulses palpable and symmetrical. Absent: calf tenderness, cyanotic - Neurological Exam Neurological exam: Present: CN II-XII intact, oriented X3, no focal deficits. Absent: pronater drift, facial droop, speech deficit - Skin Skin exam: Present: dry, intact Internal Med - H&P Results - EKG Data -: EKG Interpreted by Myself EKG shows normal: sinus rhythm Rate: normal - Assessment and plan (1) Acute respiratory failure with hypoxia and hypercapnia Current Visit: No Status: Acute Assessment and plan: Due to COPD exacerbation. Treat underlying disease (2) COPD exacerbation Current Visit: No Status: Acute Assessment and plan: Patient has history of COPD on home oxygen. Has wheezing and cough. Chest x- ray negative for pneumonia. Consider COPD exacerbation. - Continue antibiotics, steroids, and bronchodilator - Continue BiPAP supportive treatment - Closely monitor patient, may consider repeat ABG in a.m. (3) DVT prophylaxis Current Visit: No Status: Acute Assessment and plan: Heparin subcutaneously (4) Leg edema Current Visit: Yes Status: Acute Assessment and plan: Patient has bilateral leg edema. Etiology is undetermined. - Check venous Doppler to rule out DVT. - Echocardiogram to rule out CHF (less likely considering BNP 77) - Time Spent With Patient Total time spent is greater than 50% in coordination of care (as documented) at patient's floor/unit and/or counseling patient: 40 minutes Greater than 35 minutes
[2017-08-26] MEDS ORDERED: Ipratropium/Albuterol Neb 3 ML IH SCH
[2017-08-26] MEDS: methylPREDNISolone 125 MG/2 ML VIAL IVP SCH ×3 (00:21→16:52)
[2017-08-26] MEDS: Azithromycin 500 MG in D5% in Water 250 ML IVPB SCH ×2 (00:31→23:38)
[2017-08-26] MEDS: Levalbuterol Neb 1.25 MG/3 ML IH SCH ×4 (03:48→21:04)
[2017-08-26] MEDS: *HR* Heparin 5,000 UNIT/ML VIAL SQ SCH ×2 (04:28→16:52)
[2017-08-26 05:07] LABS: Basophils % 0.1 %; Hemoglobin 8.1 g/dL (11.5-15.4); Immature Granulocytes % 0.7 % (0-4); Lymphocytes # 0.5 K/mcL (0.6-4.6); Lymphocytes % 6.9 %; Mean Corpuscular Hemoglobin 29.2 pg (28.0-33.3); Mean Corpuscular Volume 97.5 fL (83.0-100.0); Mean Platelet Volume 10.9 fL (9.4-12.4); Monocytes # 0.1 K/mcL (0.0-1.3); Monocytes % 1.1 %; Neutrophils # 6.7 K/mcL (1.6-8.9); Platelet Count 122 K/mcL (140-400); Red Blood Count 2.77 M/mcL (3.82-4.97); Red Cell Distribution Width 16.2 % (11.5-14.5); Segmented Neutrophils % 91.2 %
[2017-08-26 05:26] LABS: BUN/Creatinine Ratio 16 (6-26); Blood Urea Nitrogen 16 mg/dL (8-23); Calcium 8.6 mg/dL (8.6-10.3); Carbon Dioxide 38 mEq/L (23-29); Chloride 103 mEq/L (98-107); Glucose 127 mg/dL (70-105); Magnesium 1.8 mg/dL (1.6-2.6); Osmolality,Calculated 305 (280-300); Potassium 4.2 mEq/L (3.5-5.1); Sodium 146 mEq/L (136-145); eGFR For African Americans > 60 (> 60); eGFR For Non-African Americans 54 (> 60)
[2017-08-26] MEDS: Aspirin 81 MG TAB.CHEW PO SCH (08:08)
[2017-08-26] MEDS: amLODIPine 5 MG TABLET PO SCH (08:08)
[2017-08-26] MEDS: Budesonide/Formoterol 160/4.5 MDI IH SCH ×2 (10:46→21:04)
[2017-08-26] MEDS: *HR* HYDROcodone/Acet 7.5/325 mg TABLET PO PRN ×2 (12:32→20:49)
--- NOTE | 2017-08-26 17:29 | Internal Med Progress Note ---
Date of Encounter: 08/26/17 Time of Encounter: 17:27 - Assessment and plan (1) COPD exacerbation Current Visit: Yes Status: Acute Assessment and plan: continue breathing treatments, supplemental O2, empiric antibiotics, taper down IV steroids as tolerated; supportive care; chest XRay showed no e/o- pneumonia; (2) DVT prophylaxis Current Visit: Yes Status: Acute (3) Leg edema Current Visit: Yes Status: Acute Assessment and plan: Patient has bilateral leg edema. Etiology is undetermined. - Check venous Doppler to rule out DVT. - Echocardiogram to rule out CHF (less likely considering BNP 77) (4) Acute on chronic respiratory failure Current Visit: Yes Status: Acute Assessment and plan: ABG shows respiratory acidosis with pCO2 90; due to underlying COPD; continue current management, repeat ABG in am; Qualifiers: Respiratory failure complication: hypoxia and hypercapnia Qualified Code(s) : J96.21 - Acute and chronic respiratory failure with hypoxia; J96.22 - Acute and chronic respiratory failure with hypercapnia (5) CHF (congestive heart failure) Current Visit: Yes Status: Chronic Assessment and plan: Echo from 2016 showed preserved EF, moderate LV diastolic dysfunction; will repeat Echo as mentioned above; continue home meds; Qualifiers: Heart failure type: diastolic Heart failure chronicity: chronic Qualified Code(s): I50.32 - Chronic diastolic (congestive) heart failure (6) CKD (chronic kidney disease), stage III Current Visit: Yes Status: Chronic Assessment and plan: GFR and creatinine at baseline; avoid new nephrotoxins; (7) CAD (coronary artery disease) Current Visit: Yes Status: Chronic Qualifiers: Coronary Disease-Associated Artery/Lesion type: [place] artery [place] vs. transplanted heart: [place] heart Associated angina: without angina Qualified Code(s): I25.10 - Atherosclerotic heart disease of [place] coronary artery without angina pectoris (8) Hypertension, essential Current Visit: Yes Status: Chronic (9) Hypothyroidism Current Visit: Yes Status: Chronic Qualifiers: Hypothyroidism type: unspecified Qualified Code(s): E03.9 - Hypothyroidism , unspecified - Time Spent With Patient Total time spent is greater than 50% in coordination of care (as documented) at patient's floor/unit and/or counseling patient: - Subjective Interval history: Reports leg pain in both her legs and requests Vycodin; no chest pain, dyspnea, palpitations, cough, fever/chills; does have chronic leg swelling; - Constitutional Vitals: Temp Pulse Resp BP Pulse Ox 98.9 F 99 18 131/50 96 08/26/17 15:56 08/26/17 16:39 08/26/17 15:56 08/26/17 15:56 08/26/17 15:56 General appearance: Present: A&O X 3, no acute distress, answers questions appropriately - Respiratory Respiratory exam: Present: CTAB (coarse breath sounds B/L), wheezes (end- expiratory wheezing). Absent: accessory muscle use, rales, rhonchi - Cardiovascular Cardiovascular exam: Present: RRR, +S1, +S2. Absent: diastolic murmur, gallop, rubs, systolic murmur - GI/Abdominal GI/Abdominal exam: Present: normal bowel sounds, soft, no peritoneal signs. Absent: distended, tenderness - Extremities Exam Extremities exam: Present: full ROM, pedal edema (2+ pedal edema, right>left; erythema over anterior leg), warm, radial pulses palpable and symmetrical. Absent: calf tenderness, cyanotic Internal Medicine: Result - Labs CBC & Chem 7: 08/26/17 04:35 08/26/17 04:35 Labs: Short CBC 08/26/17 Range/Units 04:35 WBC 7.4 (4.3-11.1) K/mcL Hgb 8.1 L (11.5-15.4) g/dL Hct 27.0 L (35.3-44.9) % Plt Count 122 L (140-400) K/mcL Neutrophils # 6.7 (1.6-8.9) K/mcL BMP 08/26/17 04:35 Sodium 146 H Potassium 4.2 Chloride 103 Carbon Dioxide 38 H BUN 16 Creatinine 0.98 Glucose 127 H Calcium 8.6 Consult Discharge Plan - Plan Referrals: Concepcion Burger CNP [Primary Care Provider] - 09/04/17 2:30 pm
[2017-08-27] MEDS: Levalbuterol Neb 1.25 MG/3 ML IH SCH ×4 (03:40→21:01)
[2017-08-27] MEDS: *HR* HYDROcodone/Acet 7.5/325 mg TABLET PO PRN ×3 (03:55→19:32)
[2017-08-27 04:50] LABS: Hematocrit 21.7 % (35.3-44.9); Hemoglobin 6.6 g/dL (11.5-15.4); Immature Granulocytes % 1.4 % (0-4); Lymphocytes # 0.3 K/mcL (0.6-4.6); Lymphocytes % 5.4 %; Mean Corpuscular HGB Conc 30.4 g/dL (31.6-35.5); Mean Corpuscular Hemoglobin 29.2 pg (28.0-33.3); Mean Platelet Volume 11.1 fL (9.4-12.4); Monocytes # 0.2 K/mcL (0.0-1.3); Neutrophils # 5.2 K/mcL (1.6-8.9); Nucleated Red Blood Cells 0.3 /100 WBC (0); Platelet Count 128 K/mcL (140-400); Red Blood Count 2.26 M/mcL (3.82-4.97); Red Cell Distribution Width 15.8 % (11.5-14.5); Segmented Neutrophils % 90.2 %
[2017-08-27 05:11] LABS: BUN/Creatinine Ratio 26 (6-26); Blood Urea Nitrogen 24 mg/dL (8-23); Calcium 8.1 mg/dL (8.6-10.3); Carbon Dioxide 38 mEq/L (23-29); Chloride 102 mEq/L (98-107); Glucose 201 mg/dL (70-105); Osmolality,Calculated 308 (280-300); Sodium 144 mEq/L (136-145); eGFR For African Americans > 60 (> 60); eGFR For Non-African Americans 59 (> 60)
[2017-08-27 05:26] LABS: ABG Base Excess 14 mEq/L (-2 to 3); ABG HCO3 42 mEq/L (21-27); ABG Oxygen Saturation 98 % (95-98); ABG PCO2 84 mmHg (35-45); ABG PH 7.31 pH Units (7.32-7.45); ABG PO2 125 mmHg (85-104); ABG TCO2 45 mEq/L (20-26)
[2017-08-27] MEDS: methylPREDNISolone 125 MG/2 ML VIAL IVP SCH ×2 (06:42→17:07)
[2017-08-27] MEDS: *HR* Heparin 5,000 UNIT/ML VIAL SQ SCH ×2 (06:43→17:06)
[2017-08-27] MEDS: Aspirin 81 MG TAB.CHEW PO SCH (09:47)
[2017-08-27] MEDS: amLODIPine 5 MG TABLET PO SCH (09:50)
[2017-08-27 09:59] LABS: % Iron Saturation 7 % (15-50); Ferritin 27 ng/ml (10-120); Iron 20 mcg/dL (50-170); Transferrin 217 mg/dL (203-362)
[2017-08-27 10:24] LABS: Folate 17.8 ng/mL (3.0-16.0)
[2017-08-27] MEDS: Budesonide/Formoterol 160/4.5 MDI IH SCH ×2 (10:48→21:00)
[2017-08-27] MEDS ORDERED: 0.9 % Sodium Chloride 250 ML ONE ×2 (12:22→16:23)
[2017-08-27] MEDS ORDERED: Dextrose Gel 15 GM/37.5 ML TUBE PO PRN ×2 (14:43)
[2017-08-27] MEDS ORDERED: *HR* Dextrose 50 % in Water (Syg) 50 ML SYRINGE IVP PRN (14:43)
[2017-08-27] MEDS ORDERED: D5% in Water 1,000 ML IVC PRN (14:43)
[2017-08-27] MEDS: Furosemide 20 MG TABLET PO SCH (14:58)
[2017-08-27] MEDS: Insulin LISPRO 300 UNITS/3 ML VIAL SQ SCH ×2 (17:07→20:29)
--- NOTE | 2017-08-27 17:08 | Internal Med Progress Note ---
Date of Encounter: 08/27/17 Time of Encounter: 09:30 - Assessment and plan (1) Anemia Current Visit: Yes Status: Chronic Assessment and plan: baseline Hb around 9-10; currently at 6.6, uncertain etiology; no overt bleeding ; check serum iron profile, ferritin, stool occult blood; transfuse 2 units PRBC and monitor Hb closely; avoid medical anticoagulation; Qualifiers: Anemia type: unspecified type Qualified Code(s): D64.9 - Anemia, unspecified (2) COPD exacerbation Current Visit: Yes Status: Acute Assessment and plan: continue breathing treatments, supplemental O2, empiric antibiotics, taper down IV steroids as tolerated; supportive care; chest XRay showed no e/o- pneumonia; ABG reviewed, continues to have mild respiratory acidosis and CO2 retention, with compensatory metabolic alkalosis; may benefit from home BiPAP; ordered overnight BiPAP study with PRN PO Xanax for anxiety; PT/OT evaluation; (3) DVT prophylaxis Current Visit: Yes Status: Acute (4) Leg edema Current Visit: Yes Status: Acute Assessment and plan: Patient has bilateral leg edema. Improving. Etiology is undetermined. - venous Doppler is negative for SVT/ DVT. - Echocardiogram shows preserved EF, mild LV diastolic dysfunction; will resume home dose of LASIX; (5) Acute on chronic respiratory failure Current Visit: Yes Status: Acute Assessment and plan: due to underlying COPD; continue current management, ABOVE; Qualifiers: Respiratory failure complication: hypoxia and hypercapnia Qualified Code(s) : J96.21 - Acute and chronic respiratory failure with hypoxia; J96.22 - Acute and chronic respiratory failure with hypercapnia (6) CHF (congestive heart failure) Current Visit: Yes Status: Chronic Assessment and plan: Echo findings as above; resume Lasix; Qualifiers: Heart failure type: diastolic Heart failure chronicity: chronic Qualified Code(s): I50.32 - Chronic diastolic (congestive) heart failure (7) CKD (chronic kidney disease), stage III Current Visit: Yes Status: Chronic (8) CAD (coronary artery disease) Current Visit: Yes Status: Chronic Qualifiers: Coronary Disease-Associated Artery/Lesion type: [place] artery [place] vs. transplanted heart: [place] heart Associated angina: without angina Qualified Code(s): I25.10 - Atherosclerotic heart disease of [place] coronary artery without angina pectoris (9) Hypertension, essential Current Visit: Yes Status: Chronic (10) Hypothyroidism Current Visit: Yes Status: Chronic Qualifiers: Hypothyroidism type: unspecified Qualified Code(s): E03.9 - Hypothyroidism , unspecified - Time Spent With Patient Total time spent is greater than 50% in coordination of care (as documented) at patient's floor/unit and/or counseling patient: - Subjective Interval history: Feels a lot better today; no chest pain or dyspnea reported; leg pain improved; refuses to wear BiPAP due to anxiety, reinforced compliance; - Constitutional Vitals: Temp Pulse Resp BP Pulse Ox 97.9 F 82 20 132/61 100 08/27/17 16:44 08/27/17 16:44 08/27/17 16:44 08/27/17 16:44 08/27/17 16:44 General appearance: Present: A&O X 3, answers questions appropriately - Respiratory Respiratory exam: Present: CTAB (coarse breath sounds B/L). Absent: accessory muscle use, rales, rhonchi, wheezes - Cardiovascular Cardiovascular exam: Present: RRR, +S1, +S2. Absent: diastolic murmur, gallop, rubs, systolic murmur - GI/Abdominal GI/Abdominal exam: Present: normal bowel sounds, soft, no peritoneal signs. Absent: distended, tenderness - Extremities Exam Extremities exam: Present: pedal edema (much improved, resolved right leg erythema), warm, radial pulses palpable and symmetrical. Absent: calf tenderness, cyanotic - Neurological Exam Neurological exam: Present: CN II-XII intact, oriented X3, no focal deficits. Absent: pronater drift, facial droop, speech deficit Internal Medicine: Result - Labs CBC & Chem 7: 08/27/17 04:26 08/27/17 04:26 Labs: Short CBC 08/27/17 Range/Units 04:26 WBC 5.7 (4.3-11.1) K/mcL Hgb 6.6 L D (11.5-15.4) g/dL Hct 21.7 L (35.3-44.9) % Plt Count 128 L (140-400) K/mcL Neutrophils # 5.2 (1.6-8.9) K/mcL BMP 08/27/17 04:26 Sodium 144 Potassium 4.0 Chloride 102 Carbon Dioxide 38 H BUN 24 H Creatinine 0.91 Glucose 201 H Calcium 8.1 L - ABG Interpretation ABG results: ABG ABG pH 7.31 pH Units (7.32-7.45) L 08/27/17 05:19 ABG pCO2 84 mmHg (35-45) H* 18 05:19 ABG pO2 125 mmHg (85-104) H 18 05:19 ABG O2 Saturation 98 % (95-98) 08/27/17 05:19 - Impressions Impressions Echocardiogram 08/26/17 21:31 Impressions: LVEF 70%. Normal LV chamber size, wall thickness and function. Mild left ventricular diastolic dysfunction. Normal right ventricular structure and function. Unable to estimate RVSP due to lack of TR jet. No significant valvular dysfunction. Left Ventricular Wall Motion: Rest Echo Findings All wall segments showed normal motion. Findings: Study Quality * Technically adequate exam. ECG Findings * Normal sinus rhythm. Left Ventricle * LVEF 70%. * Normal LV chamber size, wall thickness and function. * Mild left ventricular diastolic dysfunction. Right Ventricle * Normal right ventricular structure and function. Left Atrium * Normal left atrial size. Right Atrium * Normal right atrial size. Aortic Valve * Aortic valve not well visualized. * No aortic regurgitation. * No aortic stenosis. Mitral Valve * Mild mitral annular calcification * No mitral regurgitation. * No mitral stenosis. Tricuspid Valve * Normal tricuspid valve structure and function. * No tricuspid regurgitation. * Unable to estimate RVSP due to lack of TR jet. Pulmonic Valve * Pulmonic valve not well visualized. * No pulmonic regurgitation. Aorta * Normally sized aortic root. Pericardium * The pericardium appears normal. IVC * Normal IVC dimensions and inspiratory collapse. Pulmonary Artery * Normal visualized portions of the main pulmonary artery. - VTE Documentation of Mechanical Device: Intermittent pneumatic compression device Consult Discharge Plan - Plan Referrals: Concepcion Burger RE DYE HAND [Primary Care Provider] - 09/04/17 2:30 pm
[2017-08-27] MEDS: Azithromycin 500 MG in D5% in Water 250 ML IVPB SCH (21:12)
[2017-08-27] MEDS: ALPRAZolam 0.25 MG TABLET PO PRN (21:12)
[2017-08-28] MEDS: *HR* HYDROcodone/Acet 7.5/325 mg TABLET PO PRN ×3 (01:27→20:41)
[2017-08-28] MEDS: Levalbuterol Neb 1.25 MG/3 ML IH SCH ×4 (04:06→22:59)
[2017-08-28 06:34] LABS: Basophils % 0.2 %; Hematocrit 29.9 % (35.3-44.9); Immature Granulocytes % 2.3 % (0-4); Lymphocytes # 0.7 K/mcL (0.6-4.6); Lymphocytes % 7.1 %; Mean Corpuscular HGB Conc 31.8 g/dL (31.6-35.5); Mean Corpuscular Hemoglobin 28.8 pg (28.0-33.3); Mean Corpuscular Volume 90.6 fL (83.0-100.0); Mean Platelet Volume 10.1 fL (9.4-12.4); Monocytes # 0.7 K/mcL (0.0-1.3); Neutrophils # 7.9 K/mcL (1.6-8.9); Platelet Count 133 K/mcL (140-400); Red Cell Distribution Width 17.2 % (11.5-14.5); Segmented Neutrophils % 83.4 %
[2017-08-28 06:39] LABS: Hemoglobin 9.5 g/dL (11.5-15.4)
[2017-08-28 07:12] LABS: BUN/Creatinine Ratio 31 (6-26); Blood Urea Nitrogen 24 mg/dL (8-23); Calcium 8.1 mg/dL (8.6-10.3); Carbon Dioxide 45 mEq/L (23-29); Chloride 100 mEq/L (98-107); Glucose 112 mg/dL (70-105); Osmolality,Calculated 313 (280-300); Potassium 4.1 mEq/L (3.5-5.1); Sodium 149 mEq/L (136-145); eGFR For African Americans > 60 (> 60); eGFR For Non-African Americans > 60 (> 60)
[2017-08-28] MEDS: Insulin LISPRO 300 UNITS/3 ML VIAL SQ SCH ×4 (07:58→20:41)
[2017-08-28] MEDS: Aspirin 81 MG TAB.CHEW PO SCH (08:03)
[2017-08-28] MEDS: Furosemide 20 MG TABLET PO SCH (08:03)
[2017-08-28] MEDS: amLODIPine 5 MG TABLET PO SCH (08:03)
[2017-08-28 08:14] LABS: ABG Base Excess 17 mEq/L (-2 to 3); ABG HCO3 47 mEq/L (21-27); ABG Oxygen Saturation 92 % (95-98); ABG PCO2 90 mmHg (35-45); ABG PH 7.32 pH Units (7.32-7.45); ABG PO2 74 mmHg (85-104); ABG TCO2 49 mEq/L (20-26)
[2017-08-28] MEDS ORDERED: methylPREDNISolone 125 MG/2 ML VIAL IVP SCH (09:00)
[2017-08-28] MEDS: Budesonide/Formoterol 160/4.5 MDI IH SCH ×2 (10:52→23:00)
--- NOTE | 2017-08-28 17:07 | Internal Med Progress Note ---
Date of Encounter: 08/28/17 Time of Encounter: 08:35 - Assessment and plan (1) Anemia Current Visit: Yes Status: Chronic Assessment and plan: baseline Hb around 9-10; dropped to 6.6, uncertain etiology; no overt bleeding; serum iron profile s/o iron deficiency, started oral ferrous sulfate supplements ; pending stool occult blood; transfused 2 units PRBC, Hb improved to 9.5; avoid medical anticoagulation; Qualifiers: Anemia type: unspecified type Qualified Code(s): D64.9 - Anemia, unspecified (2) COPD exacerbation Current Visit: Yes Status: Acute Assessment and plan: continue breathing treatments, supplemental O2, empiric antibiotics, change to enteral steroids; supportive care; chest XRay showed no e/o- pneumonia; ABG reviewed, continues to have mild respiratory acidosis and CO2 retention, with compensatory metabolic alkalosis; qualified for home BiPAP; PT/OT evaluation noted, recommend inpatient rehab; (3) DVT prophylaxis Current Visit: Yes Status: Acute (4) Leg edema Current Visit: Yes Status: Acute Assessment and plan: Patient has bilateral leg edema. Improving. Etiology is undetermined. - venous Doppler is negative for SVT/ DVT. - Echocardiogram shows preserved EF, mild LV diastolic dysfunction; continue home dose of LASIX; (5) Acute on chronic respiratory failure Current Visit: Yes Status: Acute Assessment and plan: due to underlying COPD; continue current management, ABOVE; Qualifiers: Respiratory failure complication: hypoxia and hypercapnia Qualified Code(s) : J96.21 - Acute and chronic respiratory failure with hypoxia; J96.22 - Acute and chronic respiratory failure with hypercapnia (6) CHF (congestive heart failure) Current Visit: Yes Status: Chronic Assessment and plan: Echo findings as above; resume Lasix; Qualifiers: Heart failure type: diastolic Heart failure chronicity: chronic Qualified Code(s): I50.32 - Chronic diastolic (congestive) heart failure (7) CKD (chronic kidney disease), stage III Current Visit: Yes Status: Chronic (8) CAD (coronary artery disease) Current Visit: Yes Status: Chronic Qualifiers: Coronary Disease-Associated Artery/Lesion type: [place] artery [place] vs. transplanted heart: [place] heart Associated angina: without angina Qualified Code(s): I25.10 - Atherosclerotic heart disease of [place] coronary artery without angina pectoris (9) Hypertension, essential Current Visit: Yes Status: Chronic (10) Hypothyroidism Current Visit: Yes Status: Chronic Qualifiers: Hypothyroidism type: unspecified Qualified Code(s): E03.9 - Hypothyroidism , unspecified - Time Spent With Patient Total time spent is greater than 50% in coordination of care (as documented) at patient's floor/unit and/or counseling patient: - Subjective Interval history: Reports feeling well; has shortness of breath and some wheezing now as she walked to and from the restroom; no fever/chills, cough; - Constitutional Vitals: Temp Pulse Resp BP Pulse Ox 98.0 F 84 20 152/60 99 08/28/17 16:17 08/28/17 16:52 08/28/17 16:17 08/28/17 16:17 08/28/17 16:17 General appearance: Present: A&O X 3, answers questions appropriately - Respiratory Respiratory exam: Present: wheezes. Absent: accessory muscle use, rales, rhonchi - Cardiovascular Cardiovascular exam: Present: RRR, +S1, +S2. Absent: diastolic murmur, gallop, rubs, systolic murmur - GI/Abdominal GI/Abdominal exam: Present: normal bowel sounds, soft, no peritoneal signs. Absent: distended, tenderness - Extremities Exam Extremities exam: Present: full ROM, pedal edema, warm, radial pulses palpable and symmetrical. Absent: calf tenderness, cyanotic Internal Medicine: Result - Labs CBC & Chem 7: 08/28/17 06:15 08/28/17 06:15 Labs: Short CBC 08/28/17 Range/Units 06:15 WBC 9.5 D (4.3-11.1) K/mcL Hgb 9.5 L D (11.5-15.4) g/dL Hct 29.9 L (35.3-44.9) % Plt Count 133 L (140-400) K/mcL Neutrophils # 7.9 (1.6-8.9) K/mcL BMP 08/28/17 06:15 Sodium 149 H Potassium 4.1 Chloride 100 Carbon Dioxide 45 H* BUN 24 H Creatinine 0.77 Glucose 112 H Calcium 8.1 L - ABG Interpretation ABG results: ABG ABG pH 7.32 pH Units (7.32-7.45) 08/28/17 08:10 ABG pCO2 90 mmHg (35-45) H* 08/28/17 08:10 ABG pO2 74 mmHg (85-104) L 08/28/17 08:10 ABG O2 Saturation 92 % (95-98) L 08/28/17 08:10 - VTE Documentation of Mechanical Device: Intermittent pneumatic compression device Consult Discharge Plan - Plan Referrals: Concepcion Burger CNP [Primary Care Provider] - 09/04/17 2:30 pm
[2017-08-28] MEDS ORDERED: Azithromycin 250 MG TABLET PO SCH (18:00)
[2017-08-28] MEDS: ALPRAZolam 0.25 MG TABLET PO PRN (22:21)
[2017-08-29] MEDS: *HR* HYDROcodone/Acet 7.5/325 mg TABLET PO PRN ×2 (02:00→08:13)
[2017-08-29] MEDS: Levalbuterol Neb 1.25 MG/3 ML IH SCH ×2 (03:46→10:49)
[2017-08-29 06:41] LABS: Basophils % 0.1 %; Hematocrit 29.8 % (35.3-44.9); Hemoglobin 9.4 g/dL (11.5-15.4); Immature Granulocytes % 1.6 % (0-4); Lymphocytes # 0.7 K/mcL (0.6-4.6); Lymphocytes % 7.6 %; Mean Corpuscular HGB Conc 31.5 g/dL (31.6-35.5); Mean Corpuscular Hemoglobin 28.7 pg (28.0-33.3); Mean Corpuscular Volume 91.1 fL (83.0-100.0); Mean Platelet Volume 10.4 fL (9.4-12.4); Monocytes # 0.6 K/mcL (0.0-1.3); Monocytes % 7.5 %; Neutrophils # 7.1 K/mcL (1.6-8.9); Nucleated Red Blood Cells 0.2 /100 WBC (0); Platelet Count 150 K/mcL (140-400); Red Blood Count 3.27 M/mcL (3.82-4.97); Red Cell Distribution Width 15.9 % (11.5-14.5); Segmented Neutrophils % 83.2 %
[2017-08-29 07:15] VITALS: BP 125/51
[2017-08-29] MEDS: Insulin LISPRO 300 UNITS/3 ML VIAL SQ SCH (07:30)
[2017-08-29] MEDS: Furosemide 20 MG TABLET PO SCH (07:33)
[2017-08-29] MEDS: amLODIPine 5 MG TABLET PO SCH (07:33)
[2017-08-29] MEDS: Aspirin 81 MG TAB.CHEW PO SCH (07:34)
[2017-08-29 07:35] LABS: BUN/Creatinine Ratio 33 (6-26); Blood Urea Nitrogen 29 mg/dL (8-23); Calcium 8.2 mg/dL (8.6-10.3); Chloride 97 mEq/L (98-107); Glucose 106 mg/dL (70-105); Osmolality,Calculated 310 (280-300); Potassium 3.9 mEq/L (3.5-5.1); Sodium 147 mEq/L (136-145); eGFR For African Americans > 60 (> 60); eGFR For Non-African Americans > 60 (> 60)
[2017-08-29 07:39] LABS: Carbon Dioxide 45 mEq/L (23-29)
[2017-08-29] MEDS ORDERED: predniSONE 20 MG TABLET PO SCH (09:00)
--- NOTE | 2017-08-29 10:09 | Discharge Summary ---
- NOTES TO OUTPATIENT PROVIDER Notes to Outpatient Provider: Acute COPD, now qualified for BiPAP; unxplained anemia, received PRBC transfusions, started on FeSO4 Orders not resulted at time of discharge: Pending orders 08/27/17 09:08 Occult Blood,Stool [BF] Routine Date of Encounter: 08/29/17 Time of Encounter: 10:07 - Discharge Diagnosis (1) Anemia Priority: Primary Status: Chronic Qualifiers: Anemia type: iron deficiency Iron deficiency anemia type: unspecified iron deficiency Qualified Code(s): D50.9 - Iron deficiency anemia, unspecified (2) COPD exacerbation Priority: Primary Status: Acute (3) Leg edema Priority: Primary Status: Acute (4) Acute on chronic respiratory failure Priority: Primary Status: Acute Qualifiers: Respiratory failure complication: hypoxia and hypercapnia Qualified Code(s) : J96.21 - Acute and chronic respiratory failure with hypoxia; J96.22 - Acute and chronic respiratory failure with hypercapnia (5) CHF (congestive heart failure) Priority: Secondary Status: Chronic Qualifiers: Heart failure type: diastolic Heart failure chronicity: chronic Qualified Code(s): I50.32 - Chronic diastolic (congestive) heart failure (6) CKD (chronic kidney disease), stage III Priority: Secondary Status: Chronic (7) CAD (coronary artery disease) Priority: Secondary Status: Chronic Qualifiers: Coronary Disease-Associated Artery/Lesion type: [place] artery [place] vs. transplanted heart: [place] heart Associated angina: without angina Qualified Code(s): I25.10 - Atherosclerotic heart disease of [place] coronary artery without angina pectoris (8) Hypertension, essential Priority: Secondary Status: Chronic (9) Hypothyroidism Priority: Secondary Status: Chronic Qualifiers: Hypothyroidism type: unspecified Qualified Code(s): E03.9 - Hypothyroidism , unspecified Hospital course: Ms. Castelan is a 86 year old female with advanced COPD, was admitted with progressively worsening shortness of breath. She was noted to be in acute exacerbation of COPD, started on IV steroids, empiric antibiotics, bronchodilators and supplemental oxygen. ABG persistently showed mild respiratory acidosis with hypercarbia along with compensatory metabolic alkalosis. She was qualified for home BiPAP. Patient had unexplained anemia during her hospital stay with hemoglobin dropped to 6.6. Iron studies showed iron deficiency, she was continued on oral ferrous sulfate supplements. Hemoglobin improved with 2 units PRBC transfusion and remained stable thereafter. Physical and occupational therapy evaluation was completed, recommended inpatient rehabilitation. Patient is medically stable for transfer to rehabilitation. Discharge discussed with: patient, nurse - Time Spent with Patient Total time spent providing and/or coordinating discharge services: Greater than 30 minutes (45 min) - Discharge Medications Prescriptions: HYDROcodone/Acet 7.5/325 mg [[place] 7.5-325 mg] 1 tab PO Q6HR PRN 5 Days #10 tablet PRN Reason: Pain ALPRAZolam [Xanax 0.25 MG Tablet] 0.25 mg PO Q12H PRN 5 Days #5 tablet PRN Reason: Anxiety Home Medications: Aspirin 81 mg PO DAILY 11/13/14 [History] Budesonide/Formoterol 160/4.5 [Symbicort 160/4.5] 2 puff IH BIDRESP #1 inhaler 09/16/15 [Rx] Clopidogrel [Plavix] 75 mg PO DAILY #30 tablet 09/16/15 [Rx] Ferrous Sulfate [Iron] 325 mg PO BID 12/12/16 [History] Albuterol Sulfate 2.5 mg IH Q4HR PRN 04/03/17 [History] Atorvastatin [Lipitor] 40 mg PO HS 05/05/17 [History] Levothyroxine Sodium [Synthroid] 200 mcg PO QAM 05/05/17 [History] Ipratropium Neb [Atrovent Neb] 0.5 mg IH Q4HR #20 vial.neb 08/02/17 [Rx] Potassium Chloride [Klor-Con Sprinkle] 20 meq PO DAILY 08/24/17 [History] Furosemide [Lasix] 20 mg PO DAILY 08/27/17 [History] Levalbuterol Neb [Xopenex Neb] 0.63 mg IH TID 08/27/17 [History] ALPRAZolam [Xanax 0.25 MG Tablet] 0.25 mg PO Q12H PRN 5 Days #5 tablet 08/29/17 [Rx] HYDROcodone/Acet 7.5/325 mg [[place] 7.5-325 mg] 1 tab PO Q6HR PRN 5 Days #10 tablet 08/29/17 [Rx] amLODIPine [Norvasc] 2.5 mg PO DAILY tablet 08/29/17 [Rx] predniSONE [PredniSONE] 40 mg PO DAILY 3 Days tablet 08/29/17 [Rx] Allergies/Adverse Reactions: 3 Allergy/AdvReac Type Severity Reaction Status Date / Time No Known Allergies Allergy Verified 08/27/17 13:12 Date of admission: 08/25/17 19:47 Primary care physician: Concepcion Burger CNP Consults: 08/27/17 14:24 Consult to Physical Therapy [CONS] Routine Comment: Evaluate, develop and implement POC Reason for Consult: Generalized weakness Does patient have active BEDREST order?: No Is patient medically & hemodynamically stable?: Yes Patient assessed for mobility or mobilized this visit?: No 08/28/17 10:52 Consult to Occupational Therapy [CONS] Stat Comment: Evaluate, develop and implement POC Reason for Consult: Discharge planning Does patient have active BEDREST order?: No Is patient medically & hemodynamically stable?: Yes Patient assessed for mobility or mobilized this visit?: Yes Discharging clinician: Mallorie Kiran Anticipated date of discharge: 08/29/17 - Constitutional Vitals: Temp Pulse Resp BP Pulse Ox 97.6 F 72 21 125/51 100 08/29/17 07:09 08/29/17 07:09 08/29/17 07:09 08/29/17 07:09 08/29/17 07:09 General appearance: Present: A&O X 3, answers questions appropriately - Respiratory Respiratory exam: Present: decreased breath sounds (decreased air entry B/L), CTAB. Absent: accessory muscle use, rales, rhonchi, wheezes - Cardiovascular Cardiovascular exam: Present: RRR, +S1, +S2. Absent: diastolic murmur, gallop, rubs, systolic murmur - Patient Status Disposition: Transfer SNF Functional capacity at discharge: uses cane/walker Overall status at discharge: patient is progressing back to baseline - Discharge Instructions Follow Up With: Concepcion Burger CNP [Primary Care Provider] - 09/04/17 2:30 pm - Diet and Activity Activity: as per physical therapy, wear oxygen at all times, other (BiPAP at night) Diet: low fat, low cholesterol, low salt diet - VTE Documentation of Mechanical Device: Intermittent pneumatic compression device
--- NOTE | 2017-08-29 10:15 | Physician Discharge Referral ---
ExtendedCare Referral Info Transfer To: [facility] and Care Provider in Charge: Mallorie Kiran Provider in Charge after Transfer: PCP Institutional Level of Care: Skilled - Diagnosis (1) Anemia Priority: Primary Status: Chronic (2) COPD exacerbation Priority: Primary Status: Acute (3) Leg edema Priority: Primary Status: Acute (4) Acute on chronic respiratory failure Priority: Primary Status: Acute (5) CHF (congestive heart failure) Priority: Secondary Status: Chronic (6) CKD (chronic kidney disease), stage III Priority: Secondary Status: Chronic (7) CAD (coronary artery disease) Priority: Secondary Status: Chronic (8) Hypertension, essential Priority: Secondary Status: Chronic (9) Hypothyroidism Priority: Secondary Status: Chronic Expected Duration of Placement: 3 weeks Prognosis: Fair Aware of Diagnosis: Patient Aware of Prognosis: Patient - Transfer Medications Prescriptions: HYDROcodone/Acet 7.5/325 mg [[place] 7.5-325 mg] 1 tab PO Q6HR PRN 5 Days #10 tablet PRN Reason: Pain ALPRAZolam [Xanax 0.25 MG Tablet] 0.25 mg PO Q12H PRN 5 Days #5 tablet PRN Reason: Anxiety Home Medications: Aspirin 81 mg PO DAILY 11/13/14 [History] Budesonide/Formoterol 160/4.5 [Symbicort 160/4.5] 2 puff IH BIDRESP #1 inhaler 09/16/15 [Rx] Clopidogrel [Plavix] 75 mg PO DAILY #30 tablet 09/16/15 [Rx] Ferrous Sulfate [Iron] 325 mg PO BID 12/12/16 [History] Albuterol Sulfate 2.5 mg IH Q4HR PRN 04/03/17 [History] Atorvastatin [Lipitor] 40 mg PO HS 05/05/17 [History] Levothyroxine Sodium [Synthroid] 200 mcg PO QAM 05/05/17 [History] Ipratropium Neb [Atrovent Neb] 0.5 mg IH Q4HR #20 vial.neb 08/02/17 [Rx] Potassium Chloride [Klor-Con Sprinkle] 20 meq PO DAILY 08/24/17 [History] Furosemide [Lasix] 20 mg PO DAILY 08/27/17 [History] Levalbuterol Neb [Xopenex Neb] 0.63 mg IH TID 08/27/17 [History] ALPRAZolam [Xanax 0.25 MG Tablet] 0.25 mg PO Q12H PRN 5 Days #5 tablet 08/29/17 [Rx] HYDROcodone/Acet 7.5/325 mg [[place] 7.5-325 mg] 1 tab PO Q6HR PRN 5 Days #10 tablet 08/29/17 [Rx] amLODIPine [Norvasc] 2.5 mg PO DAILY tablet 08/29/17 [Rx] predniSONE [PredniSONE] 40 mg PO DAILY 3 Days tablet 08/29/17 [Rx] Allergies/Adverse Reactions: 3 Allergy/AdvReac Type Severity Reaction Status Date / Time No Known Allergies Allergy Verified 08/27/17 13:12 - Respiratory Orders Oxygen / L per min (3L/min via [place]), Other (BiPAP at night at 300 TV/12 IP/6 EP) Smoking Cessation: Smoking cessation has been advised. For more information, call the [employer] Quit Line at 9-975-NZMU-NOW. - Advance Directives Power of Dental Specialist: Yes Code Status: DNR-Arrest/Don't Intubate - Mobility Orders Ambulate - Rehabiliation Orders Rehab Potential: Fair Rehab Orders: ROM Exercises, Evaluation for Physical Therapy, Evaluation for Occupational Therapy - Diet Orders Renal, Cardiac CERTIFICATION: I certify that the transfer of the above named patient to an Extended Care Facility is necessary for the continuing treatment of the diagnosis listed. The above information is true and accurate reflection of patient's current condition. Confidential - Redisclosure prohibited without a patient's written consent.
[2017-08-29] MEDS: Budesonide/Formoterol 160/4.5 MDI IH SCH (10:49)
== END 2017-08-29 11:36 | DRG 190 ==
LOC: 2NNU 19:47 → SUATTDRO 19:47
PROVIDERS: ADMIT General Practice; ATTEND Internal Medicine